=== PATIENT | female | born 1935 | race Caucasian/White ===

== ENCOUNTER 2017-03-08 16:49 | Emergency (ER) | payer OTHER ==
--- NOTE | 2017-03-08 17:08 | CPEKG ---
Heart Rate: 65 RR Interval: 923 P-R Interval: 128 QRSD Interval: 96 QT Interval: 440 QTC Interval: 458 P [place]: 79 QRS [place]: 42 T Wave [place]: 154 EKG Severity - ABNORMAL ECG - EKG Impression: SINUS RHYTHM EKG Impression: LVH WITH SECONDARY REPOLARIZATION ABNORMALITY Electronically Signed By: Wm Bird 08-Mar-2017 18:43:38
--- NOTE | 2017-03-08 17:13 | EDPHY ---
H & P Stated Complaint: dizzy Time Seen by Provider: 03/08/17 17:12 HPI/ROS: CHIEF COMPLAINT: Hypertension HISTORY OF PRESENT ILLNESS: The patient is brought to the emergency department by paramedics for she reportedly was noted to be hypertensive at her assisted living facility. The patient believes she may have had some vague symptoms of dizziness which led her to get her blood pressure checked. It reportedly was 230/140. The patient denies any associated chest pain or shortness of breath. She denies any focal numbness or weakness. The patient does take Norvasc for hypertension. REVIEW OF SYSTEMS: A comprehensive 10 point review of systems is otherwise negative aside from elements mentioned in the history of present illness. Source: Patient - Personal History Current Tetanus/Diphtheria Vaccine: Yes Current Tetanus Diphtheria and Acellular Pertussis (TDAP): Yes Tetanus Vaccine Date: 2013 - Medical/Surgical History Hx Asthma: No Hx Chronic Respiratory Disease: No Hx Diabetes: No Hx Cardiac Disease: No Hx Renal Disease: No Hx Cirrhosis: No Hx Alcoholism: No Hx HIV/AIDS: No Hx Splenectomy or Spleen Trauma: No Other PMH: hypothyroid, HTN, Grave's disease, polio, post-polio syndrome - Social History Smoking Status: Never smoked - Physical Exam Exam: General Appearance: Alert, no distress Eyes: Pupils equal and round no pallor or injection ENT, Mouth: Mucous membranes moist Respiratory: There are no retractions, lungs are clear to auscultation Cardiovascular: Regular rate and rhythm Gastrointestinal: Abdomen is soft and nontender, no masses, bowel sounds normal 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 Skin: Warm and dry, no rashes Musculoskeletal: Neck is supple nontender Extremities: symmetrical, full range of motion Constitutional: Initial Vital Signs Temperature (C) 36.7 C 03/08/17 16:51 Heart Rate 88 03/08/17 16:51 Respiratory Rate 20 03/08/17 16:51 Blood Pressure 244/127 H 03/08/17 16:51 O2 Sat (%) 92 03/08/17 16:51 O2 Delivery Mode Room Air Allergies/Adverse Reactions: No Known Allergies Allergy (Unverified 02/09/15 01:02) Home Medications: Medication Instructions Recorded Calcium Carbonate [Oyster Shell 500 mg PO HS 02/09/15 Calcium 500 mg (*)] Herbals/Supplements -Info Only 1 ea PO DAILY 02/09/15 Levothyroxine [Synthroid 88 mcg 88 mcg PO DAILY 02/09/15 (*)] [place]-3 Fatty Acids [Fish Oil 1000 1,000 mg PO HS 02/09/15 mg (*)] Atenolol [Tenormin 25 mg (*)] 25 mg PO HS #0 tab 02/11/15 Metaxalone [Skelaxin 800 mg (*)] 800 mg PO TID #0 tab 02/11/15 amLODIPine BESYLATE [Norvasc 5 mg 5 mg PO DAILY #0 tab 02/11/15 (*)] Medical Decision Making - Diagnostics EKG Interpretation: EKG: Complete interpretation has been separately recorded in the [facility] archive. Summary impression: Sinus rhythm, LVH, nonspecific ST T wave changes present ED Course/Re-evaluation: The patient presents to the ED after she developed an episode of dizziness with associated hypertension. The patient is noted to be neurologically intact upon arrival. She has nonspecific changes on her EKG. The patient's blood pressure improved to 180/89 without intervention. The patient is adamant about wanting to be discharged home. I did discuss with the patient that we have not exclude the possibility of a TIA. Given the patient's high blood pressure prior to arrival I did recommend admission to the hospital for observation. She declines this. She is a competent decision maker. She would like to return to the emergency department for the development of any recurrent neurologic symptoms. She will follow up with her primary care provider at [facility] for a blood pressure recheck tomorrow. Differential Diagnosis: Differential diagnosis considered includes stroke, TIA, acute coronary syndrome , hypertensive emergency, urinary tract infection, metabolic abnormality - Data Points Laboratory Results: Laboratory Results 03/08/17 17:10 03/08/17 17:10 03/08/17 03/08/17 03/08/17 18:00 17:10 17:10 WBC 7.52 10^3/uL 10^3/uL (3.80-9.50) RBC 5.01 10^6/uL 10^6/uL (4.18-5.33) Hgb 15.3 g/dL g/dL (12.6-16.3) Hct 44.5 % % (38.0-47.0) MCV 88.8 fL fL (81.5-99.8) MCH 30.5 pg pg (27.9-34.1) MCHC 34.4 g/dL g/dL (32.4-36.7) RDW 13.8 % % (11.5-15.2) Plt Count 293 10^3/uL 10^3/uL (150-400) MPV 10.4 fL fL (8.7-11.7) Neut % (Auto) 57.9 % % (39.3-74.2) Lymph % (Auto) 26.6 % % (15.0-45.0) [place] % (Auto) 11.4 % % (4.5-13.0) Eos % (Auto) 2.9 % % (0.6-7.6) Baso % (Auto) 0.9 % % (0.3-1.7) Nucleat RBC Rel Count 0.0 % % (0.0-0.2) Absolute Neuts (auto) 4.35 10^3/uL 10^3/uL (1.70-6.50) Absolute Lymphs (auto) 2.00 10^3/uL 10^3/uL (1.00-3.00) Absolute Monos (auto) 0.86 10^3/uL H 10^3/uL (0.30-0.80) Absolute Eos (auto) 0.22 10^3/uL 10^3/uL (0.03-0.40) Absolute Basos (auto) 0.07 10^3/uL 10^3/uL (0.02-0.10) Absolute Nucleated RBC 0.00 10^3/uL 10^3/uL (0-0.01) Immature Gran % 0.3 % % (0.0-1.1) Immature Gran # 0.02 10^3/uL 10^3/uL (0.00-0.10) Sodium 135 mEq/L mEq/L (134-144) Potassium 4.3 mEq/L mEq/L (3.5-5.2) Chloride 99 mEq/L mEq/L (97-110) Carbon Dioxide 24 mEq/l mEq/l (22-31) Anion Gap 12 mEq/L mEq/L (8-16) BUN 24 mg/dL H mg/dL (7-23) Creatinine 0.5 mg/dL L mg/dL (0.6-1.0) Estimated GFR > 60 Glucose 91 mg/dL mg/dL (70-100) Calcium 9.9 mg/dL mg/dL (8.5-10.4) Troponin I Pending Urine Color YELLOW Urine Appearance CLEAR Urine pH 7.0 (5.0-7.5) Ur Specific [place] 1.013 (1.002-1.030) Urine Protein NEGATIVE (NEGATIVE) Urine Ketones TRACE H (NEGATIVE) Urine Blood NEGATIVE (NEGATIVE) Urine Nitrate NEGATIVE (NEGATIVE) Urine Bilirubin NEGATIVE (NEGATIVE) Urine Urobilinogen NEGATIVE EU EU (0.2-1.0) Ur Leukocyte Esterase NEGATIVE (NEGATIVE) Urine RBC 1-3 /hpf /hpf (0-3) Urine WBC 1-3 /hpf /hpf (0-3) Ur Epithelial Cells TRACE /lpf /lpf (NONE-1+) Urine Glucose NEGATIVE (NEGATIVE) Departure - Departure Disposition: Home, Routine, Self-Care Clinical Impression: Hypertension, Dizziness Condition: Good Instructions: Hypertension (ED) Additional Instructions: 1. We have offered you admission to the hospital for observation of a possible TIA this evening. You have declined. Please return to the emergency department should you reconsider this decision, should you developed any recurrent symptoms of chest pain, shortness of breath, numbness, weakness, severe headache or other concerns. 2. Please follow up with your primary care provider at [facility] for a recheck in the next day. Referrals: Patient,NotPresent [Unknown] - As per Instructions
[2017-03-08 18:10] LABS: % IMMATURE GRANULYOCYTES 0.3 % (0.0-1.1); ABSOLUTE IMMATURE GRANULOCYTES 0.02 10^3/uL (0.00-0.10); ADD DIFF? NO; ADD MORPH? NO; ADD SCAN? NO; ATYPICAL LYMPHOCYTE FLAG 10 (0-99); FRAGMENT RBC FLAG 0 (0-99); HEMATOCRIT 44.5 % (38.0-47.0); HEMOGLOBIN 15.3 g/dL (12.6-16.3); LEFT SHIFT FLG 0 (0-99); LIPEMIA HEMOLYSIS FLAG 90 (0-99); MEAN CELL HEMOGLOBIN 30.5 pg (27.9-34.1); MEAN CELL HEMOGLOBIN CONCENTR. 34.4 g/dL (32.4-36.7); MEAN CELL VOLUME 88.8 fL (81.5-99.8); MEAN PLATELET VOLUME 10.4 fL (8.7-11.7); PLATELET CLUMPS FLAG 0 (0-99); PLATELET COUNT 293 10^3/uL (150-400); RED BLOOD CELL COUNT 5.01 10^6/uL (4.18-5.33); RED CELL DISTRIBUTION WIDTH 13.8 % (11.5-15.2)
[2017-03-08 18:35] VITALS: BP 180/98; PULSE 68; RESP 14; TEMP 97.3; O2SAT 94
[2017-03-08 18:35] LABS: COLOR YELLOW; LEUKOCYTE ESTERASE,URINE NEGATIVE (NEGATIVE); NITRITE,URINE NEGATIVE (NEGATIVE)
[2017-03-08 19:03] LABS: ANION GAP 12 mEq/L (8-16); CALCIUM 9.9 mg/dL (8.5-10.4); CARBON DIOXIDE 24 mEq/l (22-31); CHLORIDE 99 mEq/L (97-110); CREATININE 0.5 mg/dL (0.6-1.0); GLOMERULAR FILTRATION RATE > 60; GLUCOSE 91 mg/dL (70-100); POTASSIUM 4.3 mEq/L (3.5-5.2); SODIUM 135 mEq/L (134-144)
[2017-03-08 19:15] LABS: TROPONIN I < 0.012 ng/mL (0.000-0.034)
== END 2017-03-08 19:15 | disposition home or self-care (01) ==
LOC: EDUNIT#
DX: I10 Essential (primary) hypertension (principal); R42 Dizziness and giddiness